=== PATIENT | female | born 1940 | race Caucasian/White ===

== ENCOUNTER → 2021-11-02 | Outpatient (CLI) | payer MEDICARE, OTHER ==
--- NOTE | 2021-11-02 17:35 | RAD ---
INDICATION: Reason: PAIN, SWELLING LT ARM / Spl. Instructions: / History: COMPARISON: None. TECHNIQUE: Grayscale, color and doppler ultrasound images were obtained of the left upper extremity v enous vasculature. No thrombus identified in the internal jugular, subclavian, axillary, brachial, basilic, cephalic, r adial or ulnar veins. IMPRESSION: * No thrombus identified in deep venous system of left upper extremity. Electronically signed by: Jose Real MD (11/02/2021 5:32 PM) [id number]
== END ==
LOC: US 16:45
PROVIDERS: ATTEND Family Medicine
DX: M79.89 Other specified soft tissue disorders (principal); M79.602 Pain in left arm
CPT/HCPCS: 93971

== ENCOUNTER → 2021-11-11 | Outpatient (CLI) | payer MEDICARE ==
[2021-11-11 18:30] LABS: BASO # 0.1 x10^3/uL (0.0-0.2); BASO % 1 % (0-3); EOS # 0.4 x10^3/uL (0.0-0.7); EOS % 6 % (0-3); HEMATOCRIT 31.7 % (36.0-47.0); HEMOGLOBIN 10.5 g/dL (12.0-15.5); LYMPH # 3.2 x10^3/uL (1.0-4.8); LYMPH % 43 % (24-48); MEAN CORPUSCULAR HEMOGLOBIN 32 pg (25-35); MEAN CORPUSCULAR HGB CONC 33 g/dL (31-37); MEAN CORPUSCULAR VOLUME 97 fL (79-100); MONO # 0.6 x10^3/uL (0.0-1.1); MONO % 8 % (0-9); NEUT # 3.1 x10^3uL (1.8-7.7); NEUT % 42 % (31-73); PLATELET COUNT 261 x10^3/uL (140-400); RED BLOOD COUNT 3.27 x10^6/uL (3.50-5.40); RED CELL DISTRIBUTION WIDTH 13.2 % (11.5-14.5); WHITE BLOOD COUNT 7.3 x10^3/uL (4.0-11.0)
[2021-11-11 18:53] LABS: ALBUMIN 3.1 g/dL (3.4-5.0); ALBUMIN/GLOBULIN RATIO 0.9 (1.0-1.7); CALCIUM 9.2 mg/dL (8.5-10.1); CREATININE 0.9 mg/dL (0.6-1.0); GFR 60.2; POTASSIUM 4.2 mmol/L (3.5-5.1); TOTAL BILIRUBIN 0.3 mg/dL (0.2-1.0); TOTAL PROTEIN 6.6 g/dL (6.4-8.2)
== END ==
LOC: LAB 17:27
PROVIDERS: ATTEND Family Medicine
DX: R23.3 Spontaneous ecchymoses (principal)
CPT/HCPCS: 36415; 80053; 83880; 85025; 85610; 85651; 86140

== ENCOUNTER → 2021-11-12 | Outpatient (CLI) | payer MEDICARE ==
--- NOTE | 2021-11-12 14:24 | RAD ---
INDICATION: Reason: RLE EDEMA AND PAIN / Spl. Instructions: / History: COMPARISON: None. TECHNIQUE: Grayscale, color and doppler ultrasound images were obtained of the right lower extremity venous vasculature. RIGHT: No thrombus identified in the common femoral vein, femoral vein, popliteal vein or visualized calf ve ins. IMPRESSION: * No thrombus identified in deep venous system of right lower extremity. Electronically signed by: Jose Real MD (11/12/2021 2:21 PM) [id number]
== END ==
LOC: US 13:34
PROVIDERS: ATTEND Family Medicine
DX: R60.0 Localized edema (principal); M79.661 Pain in right lower leg
CPT/HCPCS: 93971

== ENCOUNTER → 2021-11-19 | Outpatient (CLI) | payer MEDICARE ==
--- NOTE | 2021-11-19 12:50 | RAD ---
History: Left arm pain and swelling. Left upper extremity venous real time grayscale, color and spectral duplex ultrasound was performed. Comparison: 11/02/2021. The left upper extremity internal jugular, subclavian, axillary, brachial, radial and ulnar veins dem onstrate anechoic lumina and appropriate phasic color Doppler flow. Impression: No evidence of DVT in the left upper extremity venous system. Electronically signed by: Norberto Ramirez MD (11/19/2021 12:47 PM) [id number]
--- NOTE | 2021-11-19 16:12 | RAD ---
EXAM: CT CHEST WITHOUT CONTRAST HISTORY: Chest x-ray abnormality COMPARISON: None TECHNIQUE: Helical CT of the chest performed without contrast. Coronal and sagittal reformats were o btained. One or more of the following individualized dose reduction techniques were utilized for this examinat ion: 1. Automated exposure control 2. Adjustment of the mA and/or kV according to patient size 3. Use of iterative reconstruction technique. FINDINGS: Thyroid gland and thoracic inlet: Thyroid gland is atrophic. Heart and great vessels: The heart is normal in size. There are coronary artery calcifications. The t horacic aorta is normal in caliber. Mild calcified atherosclerosis in the thoracic aorta. Mediastinum and tex: There are small mediastinal and hilar lymph nodes, nonspecific. Lungs and pleura: There are bandlike opacities in the lower lobes, lingula, and right middle lobe, li severiano atelectasis. There is a 6 mm groundglass nodule in the right apex (image 15, series 2). Mild bro nchiectasis and airway wall thickening, greatest in the lower lobes. Chest wall and axillae: No axillary lymphadenopathy. Upper abdomen: There are surgical changes of cholecystectomy. There is dilation of intrahepatic bile ducts and moderate dilation of the common hepatic and common bile duct measuring 1.8 cm. Bones: No acute osseous abnormality. Mild rightward curvature of the thoracic spine. IMPRESSION: 1. Bandlike opacities in the lower lobes, lingula, right middle lobe, likely atelectasis. 2. 6 mm groundglass nodule in the right apex. Recommend follow-up CT in 6-12 months. 3. Coronary artery calcifications. 4. Post cholecystectomy. There is dilation of intrahepatic bile ducts and marked dilation of the comm on hepatic duct and visualized portion of the common bile duct. This is incompletely evaluated on thi s exam. This may be related to the patient's cholecystectomy. Recommend comparison with outside prior imaging of the abdomen, if available. Otherwise, right upper quadrant ultrasound could be obtained t o better evaluate, with possible subsequent CT or MRCP if needed. Electronically signed by: Drea Green MD (11/19/2021 4:09 PM) [id number]
[2021-11-19 22:20] LABS: TRANSFERRIN 155 mg/dL (192-364)
== END ==
LOC: CT 10:23
PROVIDERS: ATTEND Family Medicine
DX: M79.89 Other specified soft tissue disorders (principal); M79.602 Pain in left arm; R59.0 Localized enlarged lymph nodes; R91.1 Solitary pulmonary nodule; J47.9 Bronchiectasis, uncomplicated; E03.4 Atrophy of thyroid (acquired); I25.10 Atherosclerotic heart disease of native coronary artery without angina pectoris; I70.0 Atherosclerosis of aorta; M43.8X4 Other specified deforming dorsopathies, thoracic region; Z90.49 Acquired absence of other specified parts of digestive tract
CPT/HCPCS: 36415; 71250; 82607; 82728; 82746; 83540; 84466; 93971